=== PATIENT | female | born 1975 | race Caucasian/White ===

== ENCOUNTER 2020-07-05 20:10 | Emergency (ER) | payer OTHER, SELFPAY ==
--- NOTE | ~2020-07-05 | CT_ITS ---
EXAMINATION: CT brain wo con EXAM DATE: 07/05/2020 20:45 INDICATION: Fall, head injury. Hit right side of face and head. TECHNIQUE: Spiral CT of the head was performed without contrast. Axial, coronal and sagittal images were reviewed. The dose-length product (DLP) for this examination was 605.33 mGy-cm. The exposure w as tailored according to patient size, and iterative reconstruction (ASIR) was used as additional dos e reduction technique. There is no prior study for comparison. FINDINGS: There is no acute intraparenchymal hemorrhage. No evidence of intraparenchymal brain mass lesion. No evidence of acute infarction. There is no mass effect or midline shift. The ventricles are normal in size. There are no extra-axial collections. There are no acute calvarial fractures. T he orbits are unremarkable. Soft tissue is unremarkable. The visualized sinuses and mastoid air jose martin ls are well aerated. IMPRESSION: No acute intracranial findings. Reviewed, dictated and finalized at location A. [employer]
--- NOTE | ~2020-07-05 | CT_ITS ---
EXAMINATION: CT facial & cervical spine wo EXAM DATE: 07/05/2020 20:45 INDICATION: Fall, right-sided head injury. TECHNIQUE: Spiral CT of the facial bones was acquired in the axial plane. Coronal reformatted images were also reviewed. Spiral CT of the cervical spine was performed without contrast. Axial images we re reviewed. Coronal and sagittal reformatted images were also reviewed. The dose-length product (DL P) for this examination was 260.26 mGy-cm. The exposure was tailored according to patient size, and iterative reconstruction (ASIR) was used as additional dose reduction technique. There is no prior s tudy for comparison. FINDINGS: FACIAL CT: There are no displaced acute nasal bone fractures. The mandible, sinuses and orbits are i ntact. The orbits, globes and extraocular muscles are unremarkable. Minimal mucoperiosteal thicke hemalatha. Mastoid air cells are well aerated. Moderate to severe leftward nasal septal deviation. CERVICAL CT: There is no evidence of acute cervical fracture. The odontoid process is intact. Pre-d ens space is normal. Prevertebral soft tissue is normal. There are no soft tissue abnormalities maria e ntified. There is no disc space widening or traumatic vertebral body subluxation suspected. There i s mild cervical arthropathy and disc disease. Small C1 left lateral mass sclerotic focus likely bone island. A detailed level by level evaluation of spondylosis can be added as addendum if requested. IMPRESSION: No acute facial or cervical fracture. Reviewed, dictated and finalized at location A. [employer]
[2020-07-05 20:12] VITALS: BP 151/105; PULSE 114; RESP 18; TEMP 37; O2SAT 100
--- NOTE | 2020-07-05 20:23 | ED.FALL ---
HPI - Fall General Chief Complaint: Fall Stated Complaint: fall, mouth injury Time Seen by Provider: 07/05/20 20:19 Source: patient and family Mode of arrival: ambulatory Limitations: no limitations History of Present Illness HPI Narrative: Patient came out of her truck, possible rolled her ankle and fell struck the right face on the ground. No loss of consciousness complaining of severe dental pain and right face pain. Patient was tested positive for Covid June 12 complaint: fall Related Data Allergies Allergy/AdvReac Type Severity Reaction Status Date / Time No Known Allergies Allergy Verified 07/05/20 20:12 Review of Systems Review of Systems: Narrative: CONSTITUTIONAL: Denies fever, chills, or sweats. EYES: Denies visual changes, redness, or discharge. ENT: Denies rhinorrhea, congestion, sore throat, or otalgia. CARDIOVASCULAR: Denies chest pain, palpitations, or edema. RESPIRATORY: Denies cough or dyspnea. GASTROINTESTINAL: Denies abdominal pain, nausea, vomiting, or diarrhea. GENITOURINARY: Denies dysuria or hematuria. SKIN: Denies rash or itching. MUSCULOSKELETAL: Denies back pain, joint pain, or myalgia. NEUROLOGIC: Denies headache, numbness, or weakness. PSYCHIATRIC: Denies anxiety or depression. PMFSH Past Medical History Medical History Essential (primary) hypertension History of kidney stones left ESWL- 01/2018 Renal calculus 2001, 11/06/2014 SVT (supraventricular tachycardia) Surgical History Surgical History Hx of prior ablation treatment catheter ablation Family History Family History Other Diabetes mellitus Family history of coronary artery disease Hypertension Social History Social History Smoking status: Former smoker Tobacco type: cigarettes Second hand tobacco smoke exposure: No Smoking end date: 06/12/05 Alcohol intake: current Substance use: never Substance use type: does not use Gender identity (if verbalized by the patient): Female Exam Narrative: Exam Narrative: General appearance: Well-developed, well-nourished Skin: Normal color Head: Normocephalic, nontraumatic Eyes: Clear conjunctiva ENT: Oropharynx normal, ears normal, nose normal, upper lip showed 2 mm puncture wounds, broken right upper incisor, no active bleeding Neck: Supple, nontender Chest and respiratory: Airway patent, no respiratory distress, no accessory muscle use Heart: Regular rate/rhythm Musculoskeletal: Normal range of motion, nontender back Neurologic: Alert and oriented ?3, PATTERN KEEPER is normal as tested, no gross motor deficit Course Course Emergency Course: Stable Vital Signs Vital signs: Vital Signs Temperature 37.0 C 07/05/20 20:12 Pulse Rate 114 H 07/05/20 20:12 Respiratory Rate 18 07/05/20 20:12 Blood Pressure 151/105 H 07/05/20 20:12 Pulse Oximetry 100 07/05/20 20:12 Temperature 36.6 C 07/05/20 21:29 Pulse Rate 89 07/05/20 21:29 Respiratory Rate 18 07/05/20 21:29 Blood Pressure 136/89 07/05/20 21:29 Pulse Oximetry 97 07/05/20 21:29 MDM - Fall Imaging Data Radiologist's impression: Impressions Head CT 07/05/20 20:46 IMPRESSION: No acute intracranial findings. Head/Cervical Spine/Facial Bones CT 07/05/20 20:48 IMPRESSION: No acute facial or cervical fracture. Critical Care Time Critical Care Time Critical Care Time: No Discharge Plan Discharge Clinical Impression: Broken tooth Qualifiers: E
[2020-07-05] MEDS: HYDROcodone/acetaminophen (*CRX) 7.5-325 MG TABLET 1 TAB PO (20:34)
[2020-07-05 21:29] VITALS: BP 136/89; PULSE 89; RESP 18; TEMP 36.6; O2SAT 97
--- NOTE | 2020-07-05 21:29 | PC.NURSE ---
pt refused motrin, stated will take it when she gets home.
== END 2020-07-05 21:30 | disposition home or self-care (01) ==
PROVIDERS: Emergency Provider Emergency Medicine; PCP Family Medicine
DX: S02.5XXB Fracture of tooth (traumatic), initial encounter for open fracture (principal); S00.83XA Contusion of other part of head, initial encounter; S01.531A Puncture wound without foreign body of lip, initial encounter; I10 Essential (primary) hypertension; Z87.442 Personal history of urinary calculi; Z87.891 Personal history of nicotine dependence; W17.89XA Other fall from one level to another, initial encounter
CPT/HCPCS: 70450; 70486; 72125; 99284; A9270

== ENCOUNTER 2022-04-16 19:46 | Emergency (ER) | payer OTHER, SELFPAY ==
[2022-04-16 19:51] VITALS: BP 146/111; PULSE 101; RESP 18; TEMP 36.9; O2SAT 100
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
[2022-04-16] MEDS: ACETAMINOPHEN 500 MG TABLET 1000 MG PO (21:04)
== END 2022-04-16 21:40 | disposition home or self-care (01) ==
PROVIDERS: Emergency Provider Emergency Medicine; PCP Family Medicine
DX: S01.01XA Laceration without foreign body of scalp, initial encounter (principal); I10 Essential (primary) hypertension; Z87.442 Personal history of urinary calculi; Z87.891 Personal history of nicotine dependence; W20.8XXA Other cause of strike by thrown, projected or falling object, initial encounter
CPT/HCPCS: 12001; 99283; A9270

== ENCOUNTER 2024-01-16 15:42 | Inpatient (IN) | payer SELFPAY ==
--- NOTE | ~2024-01-16 | US_ITS ---
EXAMINATION: US right upper quadrant DATE: 01/20/2024 09:15 INDICATION: Pancreatitis. TECHNIQUE: Multiple grayscale and Doppler ultrasound images of the abdomen were obtained. COMPARISON: CT abdomen and pelvis 01/16/2024 FINDINGS: The visualized portions of the head of the pancreas are normal. Note that ultrasound is les s sensitive than CT for pancreatitis. There is diffuse hepatic steatosis. The gallbladder is normal i n size. No gallstones or gallbladder wall thickening. There is no sonographic Moran's sign. The comm on duct is normal and measures 4 mm. There is a small volume of ascites. IMPRESSION: 1. Diffuse hepatic steatosis. 2. Small volume of ascites. Reviewed, dictated and finalized at location A.
--- NOTE | ~2024-01-16 | CT_ITS ---
EXAMINATION: CT abdomen pelvis wo con DATE: 01/16/2024 21:54 INDICATION: diffuse abdominal pain, N/V TECHNIQUE: Computed tomography (CT) of the abdomen and pelvis was performed without intravenous contr ast. Automated exposure control and iterative reconstruction technique were employed. The dose-length product was 419.12 mGy-cm. COMPARISON: 09/02/2014. FINDINGS: Lower thorax: Unremarkable Liver: Diffuse fatty infiltration. Biliary/Gallbladder: Gallbladder is normal. No bile duct dilation. Pancreas: Moderate peripancreatic fat stranding with mild peripancreatic fluid. Spleen: Normal. Adrenals:No mass. Kidneys: No suspicious mass. Mild bilateral perinephric stranding, greater on the right. Multiple non obstructing bilateral calculi measuring up to 4 mm. No significant hydronephrosis. GI tract: No small or large bowel dilation. Normal appendix. Diverticulosis without diverticulitis. Mesentery/Peritoneum: No ascites, mass, or free air. Retroperitoneum: No mass. Pelvis: Pelvic organs are within normal limits. Soft Tissues: Soft tissues and body wall unremarkable. Bones: No acute osseous finding. IMPRESSION: Hepatic steatosis. Acute interstitial pancreatitis. Reviewed, dictated and finalized at location K.
[2024-01-16 15:45] VITALS: BP 101/68; PULSE 118; RESP 20; TEMP 36.2; O2SAT 100
--- NOTE | 2024-01-16 19:48 | ECG_ITS ---
Test Date: 2024-01-16 20:08:30 Measurements Intervals [place] Rate: 98 P: 54 [place]: 100 QRS: 69 QRSD: 89 T: 55 QT: 364 QTc: 466 Interpretive Statements SINUS RHYTHM WITH SHORT [place] INTERVAL NONSPECIFIC T-WAVE ABNORMALITY No previous ECG available for comparison Electronically Signed On 01-17-2024 17:08:28 CDT by Slim Lemon M.D.
--- NOTE | 2024-01-16 19:48 | ED.NAVMDI ---
HPI - Nausea/Vomiting/Diarrhea General Chief complaint: Nausea/Vomiting/Diarrhea Stated complaint: n/v/d x 2 days Time Seen by Provider: 01/16/24 19:19 Source: patient Mode of arrival: ambulatory Limitations: no limitations History of Present Illness HPI Narrative: This is a 48-year-old female who presents to the ED for chief complaint of N/ V/ D starting 2 days ago. Patient reports starting to feel sick on Monday night after only having a piece of bread to eat. She has had greater than 5 episodes of vomiting per day as well as greater than 5 episodes of diarrhea per day. Endorses some red tinged vomit but no gross hematemesis. Denies melena or rectal bleeding. Endorses diffuse abdominal pain and cramping as well. Denies fevers, chills, chest pain, cough, back pain. States that she drinks alcohol 5 days a week and drinks nearly 4-5 drinks. Related Data Home Medications Medication Instructions Recorded Confirmed naproxen sodium 220 mg capsule 220 mg PO BID PRN 07/07/20 09/25/23 (Aleve) Allergies Allergy/AdvReac Type Severity Reaction Status Date / Time vancomycin Allergy Rash Verified 09/25/23 08:29 Review of Systems Review of Systems: All systems as dictated in HPI [facility] Past Medical History Medical History (Updated 01/17/24 @ 00:30 by Regina Lainez DO) Essential (primary) hypertension Hay fever History of kidney stones left ESWL- 01/2018 Renal calculus 2001, 11/06/2014 SVT (supraventricular tachycardia) Surgical History Surgical History H/O dilation and curettage (~04/2016) History of endometrial ablation (~05/2016) Hx of prior ablation treatment (~2006) catheter ablation Family History Family History Other Diabetes mellitus Family history of coronary artery disease Hypertension Social History Social History Smoking status: Former smoker Tobacco type: cigarettes Second hand tobacco smoke exposure: No Smoking end date: 12/11/07 Alcohol intake: current Alcohol use details: consumes 2 vodka drinks occasionally Substance use: never Substance use type: does not use Gender identity (if verbalized by the patient): Female Exam Narrative: GENERAL: Appears dry. appears fatigued. No acute distress HEAD: Normocephalic, atraumatic. EYES: PERRLA and EOMI. ENT: Nares clear, no rhinorrhea or epistaxis. Mucous membranes moist. Oropharynx without tonsillar hypertrophy exudate or other lesions. NECK: Supple. No adenopathy or masses. CHEST: No respiratory distress. Clear to auscultation. No wheezes rales or rhonchi HEART: Regular rate and rhythm. No murmur heard. Normal peripheral pulses. ABDOMEN: epigastric tenderness present. Soft, otherwise nontender, nondistended, normal active bowel sounds. MSK: Normal range of motion. No edema. SKIN: Warm, dry, no rash. NEURO: Alert and oriented x4. No focal deficits. PSYCH: Normal mood and affect. Course Vital Signs Vital signs: Vital Signs Temperature 97.2 F L 01/16/24 15:45 Pulse Rate 118 H 01/16/24 15:45 Respiratory Rate 20 01/16/24 15:45 Blood Pressure 101/68 01/16/24 15:45 Pulse Oximetry 100 01/16/24 15:45 Oxygen Delivery Room Air 01/16/24 15:45 Temperature 97.2 F L 01/16/24 15:45 Pulse Rate 100 01/16/24 22:43 Respiratory Rate 14 01/16/24 22:43 Blood Pressure 114/70 01/16/24 22:43 Pulse Oximetry 100 01/16/24 22:43 Oxygen Delivery Room Air 01/16/24 15:45 MDM - Nausea/Vomiting/Diarrhea MDM Narrative Medical decision making narrative: This is a 48-year-old female who presents to the ED for chief complaint of N/ V/D and abdominal pain for 2 days. Vitals show initial tachycardia but no fever. vitals are otherwise normal. Exam remarkable for epigastric tenderness. Lab work r
[2024-01-16] MEDS: SODIUM CHLORIDE 0.9% IV 2,000 ML 999 ML IV CONT (20:16)
[2024-01-16] MEDS: MORPHINE SULFATE (*CRX) 4 MG/ML INJ IV PUSH (20:16)
[2024-01-16] MEDS: ONDANSETRON INJ 4 MG/2 ML VIAL IV PUSH (20:17)
[2024-01-16 20:19] LABS: Basophils Percent Auto 0.6 % (0.2-1.2); Eosinophils Percent Auto 0.4 % (0-4.4); Hemoglobin 10.7 g/dL (12.0-15.0); Immature Granulocyte Absolute 0.03 K/mm3 (0.00-0.031); Immature Granulocyte Percent A 0.6 % (0-0.5); Lymphocytes Absolute Auto 0.84 K/mm3 (0.9-3.2); Lymphocytes Percent Auto 16.2 % (18.3-44.2); Mean Corpuscular HGB Conc 34.5 g/dl (32-36); Mean Corpuscular Hemoglobin 39.3 pg (26-34); Mean Platelet Volume 10.2 fl (7.4-10.4); Monocytes Absolute Auto 0.6 K/mm3 (0.1-0.6); Monocytes Percent Auto 10.8 % (2.6-8.5); Neutrophils Absolute Auto 3.7 K/mm3 (1.3-6.7); Neutrophils Percent Auto 71.4 % (45.5-73.1); Platelet Count Result 105 k/mm3 (150-375); Red Blood Count 2.72 M/mm3 (4.2-5.4); Red Cell Distribution Width 14.7 % (11.5-14.5); White Blood Count 5.2 K/mm3 (4.5-10.0)
[2024-01-16 20:29] LABS: Lactic Acid Reflex 1.1 mmol/L (0.7-2.0)
[2024-01-16 20:35] LABS: Anisocytosis 1+; Macrocytosis 1+ (NORMAL); Platelet Estimate Decreased (Adequate); Schistocytes None Seen
[2024-01-16 20:50] VITALS: BP 112/69; PULSE 97; RESP 14; O2SAT 100
[2024-01-16 20:56] LABS: BEDSIDEPREGUCG Negative
[2024-01-16 21:09] LABS: Add Urine Microscopic? YES; Appearance Urine Turbid (Clear); Bacteria Urine 2+ /hpf; Bilirubin Urine Negative (Negative); Blood Urine Negative (Negative); Color Urine Yellow (Yellow); Glucose Urine UA Negative (Negative); Ketones Urine 4+ mg/dL (Negative); Leukocyte Esterase Ur 1+ LEU/UL (Negative); Mucus Urine Present /lpf; Need Manual Microscopic Reviewed; Nitrate Urine Negative (Negative); Protein Urine 1+ mg/dL (Negative); RBC Urine 0-2 /hpf (0-2); Specific Grav Ur 1.014 (1.001-1.035); Squamous Epithelial Cell Urine Many /hpf (Few); WBC Clumps Urine Present /HPF; WBC Urine 21-50 /hpf (0-3); pH Urine 5.5 (5.0-9.0)
[2024-01-16 21:20] LABS: Alanine Aminotransferase 33 U/L (6-35); Alkaline Phosphatase 67 U/L (38-126); Anion Gap 37 mmol/L (4-12); Aspartate Amino Transferase 51 U/L (14-36); Bilirubin,Total 0.8 mg/dL (0.2-1.3); Blood Urea Nitrogen 29 mg/dL (7-17); Calcium 9.3 mg/dL (8.4-10.2); Carbon Dioxide 12 mmol/L (22-30); Chloride 86 mmol/L (98-107); Estimated CRCL calculation 20 ml/min; Estimated Glomerular Filt Rate 17; Glucose 126 mg/dL (65-110); Potassium 3.4 mmol/L (3.4-5.0); Sodium 135 mmol/L (137-145)
[2024-01-16] MEDS: SODIUM CHLORIDE 0.9% IV 1,000 ML 999 ML IV CONT (21:32)
[2024-01-16 22:15] LABS: Fractional Inspired Oxygen 21 %; HCO3 VBG 13.7 mEq/l (24.0-30.0); pH VBG 7.334 (7.300-7.400)
[2024-01-16 22:15] LABS: Lipase 18944 U/L (23-300)
[2024-01-16 22:17] LABS: Device ROOM AIR; PCO2 VBG 26.4 mmHg (42.0-48.0)
[2024-01-16] MEDS: HYDROmorphone HCL INJ (*CRX) 1 MG/ML SYR 0.5 MG IV PUSH (22:34)
[2024-01-16 22:43] VITALS: BP 114/70; PULSE 100; RESP 14; O2SAT 100
--- NOTE | 2024-01-17 00:25 | PM.IMHP ---
H&P: HPI History of Present Illness Date/Time: 01/17/24 00:25 Chief Complaint: Abdominal pain Narrative: Patient is a 48-year-old female with past medical history of essential hypertension, SVT status post ablation, history of renal stones, alcohol abuse who presents to ED with complaints of abdominal pain. Patient started developing nausea vomiting diarrhea couple days ago. Her symptoms have not been improving. She denies any sick contacts or recent travels. She is accompanied by her fiance. Of note patient drinks alcohol 5 days a week each time 4-5 drinks. She has never had pancreatitis before. She still has gallbladder. No family history of any gallbladder pathology. In the ED: Patient is found to have lipase of 18,000, abdominal CT scan concerning for pancreatitis. Patient is given a couple L of normal saline, Zofran, morphine, Dilaudid, dose of Rocephin. [facility] Past Medical History Medical History Essential (primary) hypertension Hay fever History of kidney stones left ESWL- 01/2018 Renal calculus 2001, 11/06/2014 SVT (supraventricular tachycardia) Surgical History Surgical History H/O dilation and curettage (~04/2016) History of endometrial ablation (~05/2016) Hx of prior ablation treatment (~2006) catheter ablation Family History Family History Other Diabetes mellitus Family history of coronary artery disease Hypertension Social History Social History Smoking status: Former smoker Tobacco type: cigarettes Second hand tobacco smoke exposure: No Smoking end date: 12/11/07 Alcohol intake: current Alcohol use details: consumes 2 vodka drinks occasionally Substance use: never Substance use type: does not use Gender identity (if verbalized by the patient): Female Meds Home Medications and Allergies Home Medications Medication Instructions Recorded Confirmed Type naproxen sodium 220 mg capsule 220 mg PO BID PRN 07/07/20 09/25/23 History (Aleve) acetaminophen 500 mg tablet 1,000 mg PO TID PRN caroline 7 days #42 04/16/22 09/25/23 Rx tabs ibuprofen 800 mg tablet 800 mg PO TID PRN pain 7 days #21 04/16/22 09/25/23 Rx tabs hydrochlorothiazide 25 mg tablet 25 mg PO DAILY #90 tabs 09/25/23 09/25/23 Rx losartan 100 mg tablet 100 mg PO DAILY #90 tabs 09/25/23 09/25/23 Rx loratadine-pseudoephedrine ER 10 1 tablet PO DAILY #90 tabs 10/02/23 Rx mg-240 mg tablet,extended [id number] (Claritin-D 24 Hour) trazodone 50 mg tablet 50 mg PO QHS #30 tabs 10/02/23 Rx ondansetron 8 mg disintegrating 8 mg PO Q8H PRN nausea and 01/15/24 Rx tablet vomiting #15 tabs Allergies Allergy/AdvReac Type Severity Reaction Status Date / Time vancomycin Allergy Rash Verified 09/25/23 08:29 Vital Signs Vital Signs - 24 hr 01/16/24 15:45 01/16/24 20:50 01/16/24 22:43 Temperature 36.2 C L Pulse Rate 118 H 97 100 Respiratory Rate 20 14 14 Blood Pressure 101/68 112/69 114/70 Pulse Oximetry 100 100 100 Oxygen Delivery Room Air Exam Narrative: - GENERAL: Pleasant woman no acute distress - EYES: EOMI. Anicteric. - HENT: Moist mucous membranes. - LUNGS: Clear to auscultation bilaterally, no wheezing, rhonchi, or rales. - CARDIOVASCULAR: Regular rate and rhythm. No murmur. No JVD. - ABDOMEN: Soft, slightly tender epigastric region on deep palpation, nondistended, negative Moran sign. - EXTREMITIES: No edema. Peripheral pulses 2+. Non-tender. - NEUROLOGIC: No focal neurological deficits. CN II-XII grossly intact. - PSYCHIATRIC: Awake, Alert and oriented x 3. Appropriate mood and affect. - SKIN: No rashes or lesions. Warm. - LYMPH: No cervical lymphadenopathy. H&P: Results Labs Labs: Short CBC 01/16/24 Range/Units 20:06
[2024-01-17 00:30] VITALS: BP 103/76; PULSE 96; RESP 14; O2SAT 99
[2024-01-17 00:48] VITALS: BP 108/65; PULSE 103; RESP 16; TEMP 36.3; O2SAT 100; BMI 26.3
[2024-01-17] MEDS: ONDANSETRON INJ 4 MG/2 ML VIAL IV PUSH ×6 (00:49→22:05)
[2024-01-17] MEDS: LACTATED RINGERS 1,000 ML 150 ML IV CONT ×4 (00:49→21:24)
[2024-01-17] MEDS: HYDROmorphone HCL INJ (*CRX) 1 MG/ML SYR 0.5 MG IV PUSH ×6 (01:09→22:05)
--- NOTE | 2024-01-17 03:42 | ADMGEN ---
This patient, Yaneli Fang, was admitted to [address] [place] [address] Room 307-02 at 00:40. Patient/family oriented to hospital policies and general routines including ID bracelet, bed and alarms, visiting hours, pain management, procedures, bathroom and other care routines, personal items, smoking policy, room service/diet, and visiting hours. Information on how to activate the Rapid Response Team has been discussed. Patient/Family are encouraged to report perceived risks to care and to ask questions if they do not understand what they are told or what they should do.
[2024-01-17 05:46] VITALS: BP 102/65; PULSE 90; RESP 18; TEMP 36.1; O2SAT 98
--- NOTE | 2024-01-17 07:42 | PM.IMPN ---
Progress Note: A&P Assessment and Plan (1) Acute alcoholic pancreatitis: Qualifiers: Acute pancreatitis complication: no infection or necrosis Qualified Code(s): K85.20 - Alcohol induced acute pancreatitis without necrosis or infection Code(s): K85.20 - Alcohol induced acute pancreatitis without necrosis or infection Status: Acute Assessment and Plan: Patient presented with abdominal pain, nausea vomiting diarrhea. With patient's history of alcohol abuse likely alcohol pancreatitis however could be idiopathic pancreatitis - Abdomen/pelvis: Hepatic steatosis. Acute interstitial pancreatitis. - Lipase significant elevated 18,000., downtrending to 5377 on am labs -patient given IV fluids, continue LR at 150 cc/hour -pain control: P.r.n. Dilaudid -antiemetic Zofran -patient will keep NPO except ice chips for bowel rest -LFTs are normal, patient still has gallbladder, negative Moran sign. Unlikely gallbladder pancreatitis (2) Fatty liver due to alcoholism: Code(s): K70.0 - Alcoholic fatty liver Status: Acute Assessment and Plan: - Abdomen/pelvis CT scan shows some hepatic steatosis, with alcohol abuse history likely alcohol associated liver disease -discussed importance of alcohol cessation (3) Essential (primary) hypertension: Code(s): I10 - Essential (primary) hypertension Status: Acute Assessment and Plan: Chronic, well controlled on home medications. - HCTZ 25 mg daily - Losartan 100 mg daily - Monitor (4) Alcohol abuse: Code(s): F10.10 - Alcohol abuse, uncomplicated Status: Acute Assessment and Plan: Drinks 3-5 cranberry vodkas per day for the past 3 or so years. She has never experienced withdraw before. - [facility] protocol - Care coordination consulted, resources given - Vit B12, folate, thiamine, and multivitamin Plan # chronic conditions -insomnia: Trazodone -history of SVT status post ablation, no longer an issue, not on any medications for SVT -history of kidney stones Diet: NPO expect for ice chips DVT prophylaxis: Lovenox Code status: Full code Disposition: Home in 2-3 days Date of service 01/17/2024 Subjective Date/time seen: 01/17/24 07:42 Interval history: 48-year-old female with past medical history of essential hypertension, SVT status post ablation, history of renal stones, alcohol abuse who presents to ED with complaints of abdominal pain. Patient is pleasant lying in bed. She continues to endorse epigastric pain. Her lipase is downtrending now at 5337. She remains on IV fluids at this time. She denies having any appetite. Continue to discuss alcohol cessation with the patient. She is very interested and has resources given to her by care coordination. Review of Systems Review of Systems: All systems reviewed & are unremarkable except as noted in HPI and below Exam Narrative: AF HR 96 RR 16 SpO2 99 BP 110/66 General: female in no acute respiratory distress who is nontoxic appearing, lying semi recumbent in bed. HEENT: Normocephalic. Atraumatic. No facial asymmetry. Chest: Lungs are clear to auscultation bilaterally. No wheezes or crackles. CV: Heart was regular rate and rhythm. S1-S2. No murmurs, gallops, or rubs. Abd: Abdomen was soft. Epigastric tenderness. Nondistended. Positive bowel sounds. No organomegaly or masses. Neuro: Patient is alert and oriented x4. Cranial nerves 2-12 are intact. Speech is clear. Psych: Normal mood and affect. Patient is pleasant and cooperative. Skin: Warm and dry. No rashes noted. Objective Data Vital Signs Vital Signs: Vital Signs - 24 hr 01/16/24 15:45 01/16/24 20:50 01/16/24 22:43 Temperature 97.2 F L Pulse Rate 118 H 97 100 Respiratory Rate 20 14 14 Blood Pressure 101/68 112/69 114/70 Pulse Oximetry 100 100 100 Oxygen Delivery Room Air 01/17/24 00:30 01/17/24 00:48 01/17/24 01:00 Temperature 97.4 F L Pulse Rate 96 103 H
[2024-01-17] MEDS: ENOXAPARIN 30 MG/0.3 ML SYRINGE SUB-Q (08:52)
[2024-01-17] MEDS: hydroCHLOROthiazide 25 MG TABLET PO (08:52)
[2024-01-17] MEDS: LOSARTAN POTASSIUM 100 MG TABLET PO (08:52)
[2024-01-17 09:14] LABS: Basophils Percent Auto 0.5 % (0.2-1.2); Eosinophils Absolute Auto 0.1 K/mm3 (0-0.3); Eosinophils Percent Auto 1.9 % (0-4.4); Hematocrit 26.3 % (37.0-47.0); Immature Granulocyte Absolute 0.03 K/mm3 (0.00-0.031); Immature Granulocyte Percent A 0.8 % (0-0.5); Immature Platelet Fraction Pct 4.9 % (0.9-11.2); Lymphocytes Absolute Auto 0.58 K/mm3 (0.9-3.2); Lymphocytes Percent Auto 15.7 % (18.3-44.2); Mean Corpuscular HGB Conc 34.2 g/dl (32-36); Mean Corpuscular Hemoglobin 39.1 pg (26-34); Mean Corpuscular Volume 114.3 fl (80-100); Mean Platelet Volume 10.6 fl (7.4-10.4); Monocytes Absolute Auto 0.4 K/mm3 (0.1-0.6); Neutrophils Absolute Auto 2.6 K/mm3 (1.3-6.7); Neutrophils Percent Auto 71.1 % (45.5-73.1); Nucleated Red Blood Cells Perc 0.5 % (0.0-0.2); Platelet Count Result 86 k/mm3 (150-375); Red Cell Distribution Width 14.7 % (11.5-14.5); White Blood Count 3.7 K/mm3 (4.5-10.0)
[2024-01-17 10:06] LABS: Anisocytosis 1+; Platelet Estimate Decreased (Adequate); Schistocytes None Seen; Stomatocytes 1+
[2024-01-17 10:33] LABS: Iron 41 ug/dL (37-170)
[2024-01-17 10:45] LABS: Percent Iron Saturation 24 % (20-50)
[2024-01-17 11:05] VITALS: O2SAT 94
[2024-01-17 11:51] LABS: Folic Acid 5.6 ng/mL (2.76->20)
[2024-01-17 11:58] LABS: Alanine Aminotransferase 26 U/L (6-35); Albumin Level 3.5 g/dL (3.5-5.1); Alkaline Phosphatase 47 U/L (38-126); Anion Gap 17 mmol/L (4-12); Aspartate Amino Transferase 41 U/L (14-36); Bilirubin,Total 0.6 mg/dL (0.2-1.3); Blood Urea Nitrogen 21 mg/dL (7-17); Calcium 7.6 mg/dL (8.4-10.2); Carbon Dioxide 22 mmol/L (22-30); Chloride 98 mmol/L (98-107); Estimated CRCL calculation 30 ml/min; Estimated Glomerular Filt Rate 28; Glucose 82 mg/dL (65-110); Potassium 3.2 mmol/L (3.4-5.0); Sodium 137 mmol/L (137-145)
[2024-01-17 12:16] LABS: Lipase 5337 U/L (23-300)
--- NOTE | 2024-01-17 12:40 | WPDGICN ---
Assessment and Plan Assessment and plan (1) Acute alcoholic pancreatitis: Qualifiers: Acute pancreatitis complication: no infection or necrosis Qualified Code(s): K85.20 - Alcohol induced acute pancreatitis without necrosis or infection Code(s): K85.20 - Alcohol induced acute pancreatitis without necrosis or infection Status: Acute (2) Fatty liver due to alcoholism: Code(s): K70.0 - Alcoholic fatty liver Status: Acute (3) Pancytopenia: Code(s): D61.818 - Other pancytopenia Status: Acute (4) TANIA (acute kidney injury): Code(s): N17.9 - Acute kidney failure, unspecified Status: Acute Plan PLAN: 1. Acute pancreatitis: Last CT abdomen pelvis (01/16/2024) showed acute interstitial pancreatitis. Current episode likely due to chronic alcohol use. CT scan negative for any gallstones. [place] [id number] -Continue current management with pain control and clear liquids as tolerated. 2. Alcohol use: Educated patient on the importance of reducing or quitting alcohol consumption for overall health, particularly liver and pancreas health. 3. Fatty liver: CT showed hepatic steatosis, likely related to chronic alcohol use. No cirrhosis noted. no prior hx of elevated LFTs. AST 51 trending down to 41. continue monitoring. 4. Pancytopenia: Recent labs showed WBC 3.7, HGB 9, HCT 26, MCV 114, Plts 86. likely related to current acute condition and chronic alcohol use. No evidence of acute GI bleed This report may have been done utilizing a voice recognition system. Attempts have been made to correct errors. However, there may be uncorrected grammatical, spelling, and recognition errors present. GI Consult Note Consult date/time: 01/17/24 12:40 Reason for consult: pancreatitis HPI: Yaneli Fang is a pleasant 48 year old female with a past medical surgical history of hypertension, SVT status post ablation, history of renal stones, D&C, uterine ablation, and alcohol abuse. She presented to [place] on 01/16/2024 for abdominal pain with nausea and vomiting that started a couple of days prior to admission. CT scan of abdomen and pelvis showed acute interstitial pancreatitis and hepatic steatosis. Labs on admission: WBC 5.2, HGB 10.7, HCT 31, MCV 114, platelets 105, Na 135, BUN 29, creatinine 2.90, AST 51, ALT 33, alkaline phosphatase 67, lipase of 18, 944, albumin 5. She reports that on Monday afternoon, she started experiencing pain in the epigastric area. The pain was associated with nausea and vomiting, which prevented her from eating. She also experienced diarrhea which has since resolved. Currently, she reports that the abdominal pain recurs every 4 hours, accompanied by nausea. She is receiving pain medication for symptom control. She denies any hematemesis, melena, or hematochezia. She denies any previous episodes of pancreatitis or intermittent abdominal pain/discomfort prior to this admission. She has no history of gallstones or family hx of pancreatitis. She has been taking Prilosec for the past couple of years for heartburn/reflux symptoms, which were well-controlled until this episode. She had an endoscopy about 20 years ago for suspected gastric ulcer but doesn't recall the exact details. She denies any chronic Nsaid use. She has never had a colonoscopy. Regarding alcohol use, she reports drinking 3-5 drinks per night, 5 times a week, for the past 3-4 years. She denies any history of anemia, elevated liver enzymes, or jaundice. She sees her family physician once a year for blood pressure medication. Her last bowel movement was yesterday. She denies abdominal bloating. ENDOSCOPY HISTORY: EGD: Approximately 20 years ago (exact date unknown) (doctor unknown) (indication: suspected hiatal hernia) Findings: Unknown Repeat EGD recommendation: Not available COLONOSCOPY: No history of col
[2024-01-17 14:00] VITALS: BP 110/66; PULSE 96; RESP 16; TEMP 36.4; O2SAT 99
[2024-01-17 15:44] LABS: Triglycerides 95 mg/dL (<150)
[2024-01-17 20:57] VITALS: BP 108/66; PULSE 87; RESP 18; TEMP 36.7; O2SAT 100
[2024-01-17] MEDS: traZODone HCL 50 MG TABLET PO (22:32)
[2024-01-18] MEDS: HYDROmorphone HCL INJ (*CRX) 1 MG/ML SYR 0.5 MG IV PUSH ×6 (02:16→23:18)
[2024-01-18] MEDS: ONDANSETRON INJ 4 MG/2 ML VIAL IV PUSH ×4 (02:16→15:19)
[2024-01-18] MEDS: LACTATED RINGERS 1,000 ML 150 ML IV CONT ×2 (03:56→21:12)
[2024-01-18 06:00] VITALS: BP 100/58; PULSE 85; RESP 20; TEMP 36.4; O2SAT 99
[2024-01-18 07:08] LABS: Basophils Percent Auto 0.7 % (0.2-1.2); Eosinophils Absolute Auto 0.1 K/mm3 (0-0.3); Hematocrit 27.1 % (37.0-47.0); Hemoglobin 9.2 g/dL (12.0-15.0); Immature Granulocyte Absolute 0.03 K/mm3 (0.00-0.031); Immature Platelet Fraction Pct 4.8 % (0.9-11.2); Lymphocytes Absolute Auto 0.65 K/mm3 (0.9-3.2); Lymphocytes Percent Auto 21.2 % (18.3-44.2); Mean Corpuscular HGB Conc 33.9 g/dl (32-36); Mean Corpuscular Hemoglobin 38.5 pg (26-34); Mean Corpuscular Volume 113.4 fl (80-100); Mean Platelet Volume 10.3 fl (7.4-10.4); Monocytes Absolute Auto 0.3 K/mm3 (0.1-0.6); Monocytes Percent Auto 11.1 % (2.6-8.5); Platelet Count Result 87 k/mm3 (150-375); Red Blood Count 2.39 M/mm3 (4.2-5.4); Red Cell Distribution Width 14.6 % (11.5-14.5); White Blood Count 3.1 K/mm3 (4.5-10.0)
[2024-01-18 07:16] LABS: INR 0.9; Prothrombin Time 12.8 Seconds (11.1-14.7)
[2024-01-18 07:19] LABS: Alanine Aminotransferase 27 U/L (6-35); Albumin Level 3.6 g/dL (3.5-5.1); Alkaline Phosphatase 55 U/L (38-126); Anion Gap 16 mmol/L (4-12); Aspartate Amino Transferase 64 U/L (14-36); Bilirubin,Total 0.6 mg/dL (0.2-1.3); Blood Urea Nitrogen 11 mg/dL (7-17); Calcium 8.1 mg/dL (8.4-10.2); Carbon Dioxide 25 mmol/L (22-30); Chloride 95 mmol/L (98-107); Estimated CRCL calculation 38 ml/min; Estimated Glomerular Filt Rate 37; Glucose 79 mg/dL (65-110); Potassium 2.8 mmol/L (3.4-5.0); Sodium 136 mmol/L (137-145)
[2024-01-18 07:24] LABS: Lipase 2273 U/L (23-300)
--- NOTE | 2024-01-18 08:17 | PM.IMPN ---
Progress Note: A&P Assessment and Plan (1) Acute alcoholic pancreatitis: Qualifiers: Acute pancreatitis complication: no infection or necrosis Qualified Code(s): K85.20 - Alcohol induced acute pancreatitis without necrosis or infection Code(s): K85.20 - Alcohol induced acute pancreatitis without necrosis or infection Status: Acute Assessment and Plan: Patient presented with abdominal pain, nausea vomiting diarrhea. With patient's history of alcohol abuse likely alcohol pancreatitis however could be idiopathic pancreatitis - Abdomen/pelvis: Hepatic steatosis. Acute interstitial pancreatitis. - Lipase significant elevated 18,000 on admission, downtrending to 2273 on am labs - patient given IV fluids, continue LR at 150 cc/hour - pain control: P.r.n. Dilaudid - antiemetic Zofran - diet: clear liquid, advance as tolerated - LFTs are normal, patient still has gallbladder, negative Moran sign. Unlikely gallbladder pancreatitis (2) Fatty liver due to alcoholism: Code(s): K70.0 - Alcoholic fatty liver Status: Acute Assessment and Plan: - Abdomen/pelvis CT scan shows some hepatic steatosis, with alcohol abuse history likely alcohol associated liver disease -discussed importance of alcohol cessation (3) Essential (primary) hypertension: Code(s): I10 - Essential (primary) hypertension Status: Acute Assessment and Plan: Chronic, well controlled on home medications. - HCTZ 25 mg daily - Losartan 100 mg daily - Monitor (4) Alcohol abuse: Code(s): F10.10 - Alcohol abuse, uncomplicated Status: Acute Assessment and Plan: Drinks 3-5 cranberry vodkas per day for the past 3 or so years. She has never experienced withdraw before. - [facility] protocol - Care coordination consulted, resources given - Vit B12, folate, thiamine, and multivitamin ordered (5) Pancytopenia: Code(s): D61.818 - Other pancytopenia Status: Acute Assessment and Plan: Patient has low blood levels likely due to her ongoing alcoholism. Discussed with patient that these will likely improve with alcohol cessation and to follow up with a casino attendant outpatient. - Iron panel: iron 43, TIBC 173, % saturation 24 - B12 343 - Folate 5.6 - Patient on B12 and folate supplements for alcohol abuse (6) TANIA (acute kidney injury): Code(s): N17.9 - Acute kidney failure, unspecified Status: Acute Assessment and Plan: BUN/Cr 29/2.9 on admission. Unknown baseline. - BUN/Cr 11/1.5 on am labs - Avoid nephrotoxic medications - Renally dose medications - Monitor I/O and vital signs - Monitor kidney function on am labs Plan # chronic conditions -insomnia: Trazodone -history of SVT status post ablation, no longer an issue, not on any medications for SVT -history of kidney stones Diet: clear liquid DVT prophylaxis: Lovenox Code status: Full code Disposition: Home in 2-3 days Time Spent With Patient Time with patient: 25 - 35 minutes Subjective Date/time seen: 01/18/24 08:17 Interval history: 48-year-old female with past medical history of essential hypertension, SVT status post ablation, history of renal stones, alcohol abuse who presents to ED with complaints of abdominal pain. Patient is pleasant lying in bed with friend at bedside. Per patient okay to discuss care plan with friend present. Patient states she is feeling better. Her appetite has returned. Will start patient on clear liquid diet and advance as tolerated. If patient tolerates the diet will start her on oral pain regimen. Patient denies chest pain, shortness of breath, nausea/vomiting and changes in bowel/bladder. Review of Systems Review of Systems: All systems reviewed & are unremarkable except as noted in HPI and below Exam Narrative: AF HR 85 RR 20 SpO2 99 BP 115/65 General: female in no acute respiratory distress who is nontoxic appearing, lying semi recumbent in bed.
[2024-01-18 09:00] VITALS: BP 115/65; PULSE 80; O2SAT 100
[2024-01-18] MEDS: POTASSIUM CHLORIDE 20 MEQ ER TABLET 40 MEQ PO (09:03)
[2024-01-18] MEDS: FOLIC ACID 0.4 MG TABLET PO (09:03)
[2024-01-18] MEDS: hydroCHLOROthiazide 25 MG TABLET PO (09:04)
[2024-01-18] MEDS: LOSARTAN POTASSIUM 100 MG TABLET PO (09:04)
[2024-01-18] MEDS: MULTIVITAMINS THERAPEUTIC TAB (*BKC) 1 TABLET PO (09:04)
[2024-01-18] MEDS: CYANOCOBALAMIN 500 MCG TABLET PO (09:04)
[2024-01-18] MEDS: ENOXAPARIN 30 MG/0.3 ML SYRINGE SUB-Q (09:05)
[2024-01-18] MEDS: THIAMINE HCL 200 MG/2 ML VIAL 100 MG IV PUSH (09:05)
[2024-01-18] MEDS: POTASSIUM CHLORIDE INJ 40 MEQ in SODIUM CHLORIDE 0.9% IV 500 ML 130 MEQ IVPB (09:06)
[2024-01-18 14:00] VITALS: BP 123/84; PULSE 90; RESP 18; TEMP 36.9; O2SAT 96
--- NOTE | 2024-01-18 15:43 | WPDGIPROGNO ---
Progress Note: A&P Assessment and Plan (1) Acute alcoholic pancreatitis: Qualifiers: Acute pancreatitis complication: no infection or necrosis Qualified Code(s): K85.20 - Alcohol induced acute pancreatitis without necrosis or infection Code(s): K85.20 - Alcohol induced acute pancreatitis without necrosis or infection Status: Acute Assessment and Plan: here with alcoholic pancreatitis lipase trending down but still symptomatic liquid diet when pain and nausea better continue with supportive care (2) Fatty liver due to alcoholism: Code(s): K70.0 - Alcoholic fatty liver Status: Acute (3) TANIA (acute kidney injury): Code(s): N17.9 - Acute kidney failure, unspecified Status: Acute Assessment and Plan: improving slowly (4) Pancytopenia: Code(s): D61.818 - Other pancytopenia Status: Acute Assessment and Plan: probably from alcohol abuse/BM toxicity and liver disease will need scopes as outpatient (5) Alcohol abuse: Code(s): F10.10 - Alcohol abuse, uncomplicated Status: Acute Assessment and Plan: she really needs to quit altogether thiamine, mvi (6) Nausea and vomiting in adult: Code(s): R11.2 - Nausea with vomiting, unspecified Status: Acute Assessment and Plan: antiemetics (7) Elevated transaminase level: Code(s): R74.01 - Elevation of levels of liver transaminase levels Status: Acute Subjective Date/time seen: 01/18/24 15:43 Interval history: still with abdominal discomfort, today tried liquid diet but became sick Review of Systems Review of Systems: All systems reviewed & are unremarkable except as noted in HPI and below Exam Const: General: comfortable HENMT: Face/Nose/Sinus: Normal nares present Eyes: General: appearance normal, both eyes and all related structures Neck: Neck: supple Resp: Auscultation: clear to auscultation bilaterally Cardio: Rate: regular rate Rhythm: regular rhythm GI: Inspection: non-distended GI Palp: Yes Soft to palpation and Yes Tenderness to palpation present (GI) (mild epigastric pain, no rebound) Auscultation: normal bowel sounds Skin: General skin exam: normal color Neuro: Speech: normal speech Motor exam (neuro): 5/5 motor strength present throughout Extrem: General: normal to inspection Psych: Affect: Anxious affect present Objective Data Vital Signs Vital Signs: Vital Signs - 24 hr 01/17/24 20:57 08/07/24 20:00 01/18/24 06:00 Temperature 98.1 F 97.5 F L Pulse Rate 87 85 Respiratory Rate 18 20 Blood Pressure 108/66 100/58 L Pulse Oximetry 100 99 Oxygen Delivery Room Air 01/18/24 09:00 01/18/24 09:00 01/18/24 14:00 Temperature 98.5 F Pulse Rate 80 90 Respiratory Rate 18 Blood Pressure 115/65 123/84 Pulse Oximetry 100 96 Oxygen Delivery Room Air Intake/Output Intake/Output: Intake & Output 01/15/24 01/16/24 01/17/24 01/18/24 23:59 23:59 23:59 23:59 Intake Total 2049 3955 1220 Balance 2049 3955 1220 Meds/Results Medications: Active Medications Generic Name Dose Route Start Last Admin Trade Name Freq PRN Reason Stop Dose Admin Cyanocobalamin 500 mcg 01/18/24 09:00 01/18/24 09:04 Cyanocobalamin 500 Mcg Tablet PO 500 mcg QAM CICI Administration Enoxaparin Sodium 30 mg 01/17/24 09:00 01/18/24 09:05 Enoxaparin 30 Mg/0.3 Ml Syringe SUB-Q 30 mg DAILY CICI Administration Folic Acid 0.4 mg 01/18/24 09:00 01/18/24 09:03 Folic Acid 0.4 Mg Tablet PO 0.4 mg DAILY CICI Administration Hydrochlorothiazide 25 mg 01/17/24 09:00 01/18/24 09:04 Hydrochlorothiazide 25 Mg Tablet PO 25 mg DAILY CICI Administration Hydromorphone HCl 0.5 mg 01/16/24 23:39 01/18/24 15:19 Hydromorphone Hcl Inj (*Crx) 1 Mg/Ml Syr IV PUSH 0.5 mg Q4H PRN Administration Pain Rated 7-10 Lactated Ringer's 1,000 mls @ 150 mls/hr 01/16/24 23:40 01/18/24
[2024-01-18] MEDS: traZODone HCL 50 MG TABLET PO (21:11)
[2024-01-18 22:00] VITALS: BP 126/83; PULSE 82; RESP 16; TEMP 36.1; O2SAT 99
[2024-01-19] VITALS: PULSE 82
[2024-01-19] MEDS: HYDROmorphone HCL INJ (*CRX) 1 MG/ML SYR 0.5 MG IV PUSH ×5 (03:38→20:34)
[2024-01-19 04:00] VITALS: PULSE 80
[2024-01-19] MEDS: LACTATED RINGERS 1,000 ML 150 ML IV CONT ×3 (04:16→19:56)
[2024-01-19 05:37] VITALS: BP 124/84; PULSE 78; RESP 16; TEMP 36.6; O2SAT 98
[2024-01-19 06:07] LABS: Basophils Percent Auto 0.7 % (0.2-1.2); Eosinophils Absolute Auto 0.1 K/mm3 (0-0.3); Eosinophils Percent Auto 3.7 % (0-4.4); Hematocrit 24.7 % (37.0-47.0); Hemoglobin 8.7 g/dL (12.0-15.0); Immature Granulocyte Absolute 0.04 K/mm3 (0.00-0.031); Immature Granulocyte Percent A 1.3 % (0-0.5); Immature Platelet Fraction Pct 5.3 % (0.9-11.2); Lymphocytes Absolute Auto 0.69 K/mm3 (0.9-3.2); Mean Corpuscular HGB Conc 35.2 g/dl (32-36); Mean Corpuscular Hemoglobin 39.7 pg (26-34); Mean Corpuscular Volume 112.8 fl (80-100); Mean Platelet Volume 10.2 fl (7.4-10.4); Monocytes Absolute Auto 0.4 K/mm3 (0.1-0.6); Neutrophils Absolute Auto 1.8 K/mm3 (1.3-6.7); Neutrophils Percent Auto 59.3 % (45.5-73.1); Platelet Count Result 87 k/mm3 (150-375); Red Blood Count 2.19 M/mm3 (4.2-5.4); Red Cell Distribution Width 14.6 % (11.5-14.5)
[2024-01-19 06:13] LABS: INR 0.9; Prothrombin Time 12.9 Seconds (11.1-14.7)
[2024-01-19 06:39] LABS: Platelet Estimate Slightly Decreased (Adequate)
[2024-01-19 06:40] LABS: Anisocytosis 1+; Hypochromasia 1+; Macrocytosis 1+ (NORMAL); Schistocytes None Seen
[2024-01-19 06:48] LABS: Alanine Aminotransferase 26 U/L (6-35); Albumin Level 3.1 g/dL (3.5-5.1); Alkaline Phosphatase 52 U/L (38-126); Anion Gap 11 mmol/L (4-12); Aspartate Amino Transferase 86 U/L (14-36); Bilirubin,Total 0.5 mg/dL (0.2-1.3); Blood Urea Nitrogen 6 mg/dL (7-17); Calcium 8.3 mg/dL (8.4-10.2); Carbon Dioxide 26 mmol/L (22-30); Chloride 99 mmol/L (98-107); Estimated CRCL calculation 47 ml/min; Estimated Glomerular Filt Rate 48; Glucose 78 mg/dL (65-110); Potassium 3.5 mmol/L (3.4-5.0); Sodium 136 mmol/L (137-145)
[2024-01-19 07:14] LABS: Lipase 2445 U/L (23-300)
--- NOTE | 2024-01-19 08:23 | PM.IMPN ---
Progress Note: A&P Assessment and Plan (1) Acute alcoholic pancreatitis: Qualifiers: Acute pancreatitis complication: no infection or necrosis Qualified Code(s): K85.20 - Alcohol induced acute pancreatitis without necrosis or infection Code(s): K85.20 - Alcohol induced acute pancreatitis without necrosis or infection Status: Acute Assessment and Plan: Patient presented with abdominal pain, nausea vomiting diarrhea. With patient's history of alcohol abuse likely alcohol pancreatitis however could be idiopathic pancreatitis - Abdomen/pelvis: Hepatic steatosis. Acute interstitial pancreatitis. - Lipase significant elevated 18,000 on admission, downtrending to 2273 on am labs - patient given IV fluids, continue LR at 150 cc/hour - pain control: P.r.n. Dilaudid - antiemetic Zofran - diet: clear liquid, advance as tolerated - bili, alk phs and ALT WNL. AST slightly elevated. [place] sign was positive on today exam. Will obtain a RUQ US to reevaluate. (2) Fatty liver due to alcoholism: Code(s): K70.0 - Alcoholic fatty liver Status: Acute Assessment and Plan: - Abdomen/pelvis CT scan shows some hepatic steatosis, with alcohol abuse history likely alcohol associated liver disease -discussed importance of alcohol cessation (3) Essential (primary) hypertension: Code(s): I10 - Essential (primary) hypertension Status: Acute Assessment and Plan: Chronic, well controlled on home medications. - HCTZ 25 mg daily - Losartan 100 mg daily - Monitor (4) Alcohol abuse: Code(s): F10.10 - Alcohol abuse, uncomplicated Status: Acute Assessment and Plan: Drinks 3-5 cranberry vodkas per day for the past 3 or so years. She has never experienced withdraw before. - [facility] protocol - Care coordination consulted, resources given - Vit B12, folate, thiamine, and multivitamin ordered (5) Pancytopenia: Code(s): D61.818 - Other pancytopenia Status: Acute Assessment and Plan: Patient has low blood levels likely due to her ongoing alcoholism. Discussed with patient that these will likely improve with alcohol cessation and to follow up with a nsh teacher outpatient. - Iron panel: iron 43, TIBC 173, % saturation 24 - B12 343 - Folate 5.6 - Patient on B12 and folate supplements for alcohol abuse - Per GI will require scopes as outpatient (6) TANIA (acute kidney injury): Code(s): N17.9 - Acute kidney failure, unspecified Status: Acute Assessment and Plan: BUN/Cr 29/2.9 on admission. Unknown baseline. - BUN/Cr 6/1.2 on am labs - Avoid nephrotoxic medications - Renally dose medications - Monitor I/O and vital signs - Monitor kidney function on am labs Plan # chronic conditions -insomnia: Trazodone -history of SVT status post ablation, no longer an issue, not on any medications for SVT -history of kidney stones Diet: clear liquid DVT prophylaxis: Lovenox Code status: Full code Disposition: Home in 2-3 days Time Spent With Patient Time with patient: 25 - 35 minutes Subjective Date/time seen: 01/19/24 08:23 Interval history: 48-year-old female with past medical history of essential hypertension, SVT status post ablation, history of renal stones, alcohol abuse who presents to ED with complaints of abdominal pain. Patient is pleasant lying in bed with friend at bedside. She continues to endorse epigastric pain that is now radiating to her back. Her tot bili, alk phos and ALT WNL. AST slightly elevated. She had positive murphys sign today. Will obtain a RUQ US in the am to reassess. Patient will be made NPO at midnight. She is slowly tolerating full liquid diet today. She remains on IV pain regimen at this time. She denies chest pain, shortness of breath, nausea/vomiting and changes in bowel/bladder. Review of Systems Review of Systems: All systems reviewed & are unremarkable except as noted in HPI and below Exam Jose E
[2024-01-19] MEDS: CYANOCOBALAMIN 500 MCG TABLET PO (08:31)
[2024-01-19] MEDS: THIAMINE HCL 200 MG/2 ML VIAL 100 MG IV PUSH (08:31)
[2024-01-19] MEDS: MULTIVITAMINS THERAPEUTIC TAB (*BKC) 1 TABLET PO (08:33)
[2024-01-19] MEDS: FOLIC ACID 0.4 MG TABLET PO (08:33)
[2024-01-19] MEDS: LOSARTAN POTASSIUM 100 MG TABLET PO (08:33)
[2024-01-19] MEDS: hydroCHLOROthiazide 25 MG TABLET PO (08:33)
[2024-01-19 14:00] VITALS: BP 136/91; PULSE 93; RESP 17; TEMP 36.4; O2SAT 99
--- NOTE | 2024-01-19 14:51 | WPDGIPROGNO ---
Progress Note: A&P Assessment and Plan (1) Acute alcoholic pancreatitis: Qualifiers: Acute pancreatitis complication: no infection or necrosis Qualified Code(s): K85.20 - Alcohol induced acute pancreatitis without necrosis or infection Code(s): K85.20 - Alcohol induced acute pancreatitis without necrosis or infection Status: Acute Assessment and Plan: here with alcoholic pancreatitis less symptomatic and tolerating diet, ok to advance continue with supportive care (2) Fatty liver due to alcoholism: Code(s): K70.0 - Alcoholic fatty liver Status: Acute (3) TANIA (acute kidney injury): Code(s): N17.9 - Acute kidney failure, unspecified Status: Acute Assessment and Plan: improving slowly (4) Pancytopenia: Code(s): D61.818 - Other pancytopenia Status: Acute Assessment and Plan: probably from alcohol abuse/BM toxicity and liver disease will need scopes as outpatient (5) Alcohol abuse: Code(s): F10.10 - Alcohol abuse, uncomplicated Status: Acute Assessment and Plan: she really needs to quit altogether thiamine, mvi (6) Nausea and vomiting in adult: Code(s): R11.2 - Nausea with vomiting, unspecified Status: Acute Assessment and Plan: this is almost gone (7) Elevated transaminase level: Code(s): R74.01 - Elevation of levels of liver transaminase levels Status: Acute Subjective Date/time seen: 01/19/24 14:51 Interval history: she is tolerating liquid diet today, still some abdominal pain overall better than yesterday Review of Systems Review of Systems: All systems reviewed & are unremarkable except as noted in HPI and below Exam Const: General: comfortable HENMT: Face/Nose/Sinus: Normal nares present Eyes: General: appearance normal, both eyes and all related structures Neck: Neck: supple Resp: Auscultation: clear to auscultation bilaterally Cardio: Rate: regular rate Rhythm: regular rhythm GI: Inspection: non-distended GI Palp: Yes Soft to palpation and Yes Tenderness to palpation present (GI) (mild epigastric pain, no rebound) Auscultation: normal bowel sounds Skin: General skin exam: normal color Neuro: Speech: normal speech Motor exam (neuro): 5/5 motor strength present throughout Extrem: General: normal to inspection Psych: Affect: Anxious affect present Objective Data Vital Signs Vital Signs: Vital Signs - 24 hr 01/18/24 22:00 01/19/24 05:37 01/19/24 00:00 Temperature 97.0 F L 97.8 F Pulse Rate 82 78 82 Respiratory Rate 16 16 Blood Pressure 126/83 124/84 Pulse Oximetry 99 98 Oxygen Delivery 01/19/24 04:00 01/19/24 08:30 Temperature Pulse Rate 80 Respiratory Rate Blood Pressure Pulse Oximetry Oxygen Delivery Room Air Intake/Output Intake/Output: Intake & Output 01/16/24 01/17/24 01/18/24 01/19/24 23:59 23:59 23:59 23:59 Intake Total 2049 3955 2220 2370 Balance 2049 3955 2220 2370 Meds/Results Medications: Active Medications Generic Name Dose Route Start Last Admin Trade Name Freq PRN Reason Stop Dose Admin Cyanocobalamin 500 mcg 01/18/24 09:00 01/19/24 08:31 Cyanocobalamin 500 Mcg Tablet PO 500 mcg QAM CICI Administration Enoxaparin Sodium 30 mg 01/17/24 09:00 01/19/24 08:32 Enoxaparin 30 Mg/0.3 Ml Syringe SUB-Q Not Given DAILY CICI Folic Acid 0.4 mg 01/18/24 09:00 01/19/24 08:33 Folic Acid 0.4 Mg Tablet PO 0.4 mg DAILY CICI Administration Hydrochlorothiazide 25 mg 01/17/24 09:00 01/19/24 08:33 Hydrochlorothiazide 25 Mg Tablet PO 25 mg DAILY CICI Administration Hydromorphone HCl 0.5 mg 01/16/24 23:39 01/19/24 12:31 Hydromorphone Hcl Inj (*Crx) 1 Mg/Ml Syr IV PUSH 0.5 mg Q4H PRN Administration Pain Rated 7-10 Lactated Ringer's 1,000 mls @ 150 mls/hr 01/16/24 23:40 01/19/24 12:31 Lr - Lactated Ringers Iv IV CONT 150 mls/hr .Q6H
[2024-01-19 20:17] VITALS: BP 134/96; PULSE 87; RESP 20; TEMP 36.6; O2SAT 98
[2024-01-19] MEDS: HYDROcodone/acetaminophen (*CRX) 5-325 MG TABLET 1 TAB PO (21:21)
[2024-01-19] MEDS: traZODone HCL 50 MG TABLET PO (21:51)
[2024-01-20] MEDS: HYDROcodone/acetaminophen (*CRX) 5-325 MG TABLET 1 TAB PO ×6 (00:47→22:18)
[2024-01-20 05:36] VITALS: BP 149/97; PULSE 81; RESP 14; TEMP 36.3; O2SAT 99
[2024-01-20 06:18] LABS: Basophils Percent Auto 1.4 % (0.2-1.2); Eosinophils Absolute Auto 0.1 K/mm3 (0-0.3); Eosinophils Percent Auto 3.6 % (0-4.4); Hematocrit 26.8 % (37.0-47.0); Hemoglobin 9.2 g/dL (12.0-15.0); Immature Granulocyte Absolute 0.05 K/mm3 (0.00-0.031); Immature Granulocyte Percent A 1.8 % (0-0.5); Immature Platelet Fraction Pct 5.4 % (0.9-11.2); Lymphocytes Absolute Auto 0.69 K/mm3 (0.9-3.2); Lymphocytes Percent Auto 24.8 % (18.3-44.2); Mean Corpuscular HGB Conc 34.3 g/dl (32-36); Mean Corpuscular Hemoglobin 38.8 pg (26-34); Mean Corpuscular Volume 113.1 fl (80-100); Mean Platelet Volume 10.5 fl (7.4-10.4); Monocytes Absolute Auto 0.4 K/mm3 (0.1-0.6); Monocytes Percent Auto 13.3 % (2.6-8.5); Neutrophils Absolute Auto 1.5 K/mm3 (1.3-6.7); Neutrophils Percent Auto 55.1 % (45.5-73.1); Platelet Count Result 106 k/mm3 (150-375); Red Blood Count 2.37 M/mm3 (4.2-5.4); Red Cell Distribution Width 14.5 % (11.5-14.5); White Blood Count 2.8 K/mm3 (4.5-10.0)
[2024-01-20 06:29] LABS: Prothrombin Time 13.3 Seconds (11.1-14.7)
[2024-01-20 06:34] LABS: Alanine Aminotransferase 27 U/L (6-35); Albumin Level 3.4 g/dL (3.5-5.1); Alkaline Phosphatase 56 U/L (38-126); Anion Gap 10 mmol/L (4-12); Aspartate Amino Transferase 74 U/L (14-36); Bilirubin,Total 0.5 mg/dL (0.2-1.3); Blood Urea Nitrogen 4 mg/dL (7-17); Calcium 8.9 mg/dL (8.4-10.2); Carbon Dioxide 29 mmol/L (22-30); Chloride 95 mmol/L (98-107); Estimated CRCL calculation 56 ml/min; Estimated Glomerular Filt Rate 60; Glucose 89 mg/dL (65-110); Potassium 3.5 mmol/L (3.4-5.0); Sodium 134 mmol/L (137-145)
[2024-01-20 06:41] LABS: Lipase 3074 U/L (23-300)
[2024-01-20 07:07] LABS: Macrocytosis 1+ (NORMAL); Platelet Estimate Slightly Decreased (Adequate)
[2024-01-20 07:08] LABS: Hypochromasia 1+; Schistocytes None Seen
--- NOTE | 2024-01-20 08:59 | PC.NURSE ---
Pt. down to ultrasound via wheelchair.
[2024-01-20] MEDS: MULTIVITAMINS THERAPEUTIC TAB (*BKC) 1 TABLET PO (09:17)
[2024-01-20] MEDS: THIAMINE HCL 200 MG/2 ML VIAL 100 MG IV PUSH (09:17)
[2024-01-20] MEDS: FOLIC ACID 0.4 MG TABLET PO (09:17)
[2024-01-20] MEDS: CYANOCOBALAMIN 500 MCG TABLET PO (09:17)
[2024-01-20] MEDS: hydroCHLOROthiazide 25 MG TABLET PO (09:17)
[2024-01-20] MEDS: LOSARTAN POTASSIUM 100 MG TABLET PO (09:17)
--- NOTE | 2024-01-20 09:25 | PC.NURSE ---
Pt back from ultrasound at 9:20.
[2024-01-20] MEDS: LACTATED RINGERS 1,000 ML 150 ML IV CONT (10:44)
--- NOTE | 2024-01-20 12:57 | WPDGIPROGNO ---
Progress Note: A&P Assessment and Plan (1) Acute alcoholic pancreatitis: Qualifiers: Acute pancreatitis complication: no infection or necrosis Qualified Code(s): K85.20 - Alcohol induced acute pancreatitis without necrosis or infection Code(s): K85.20 - Alcohol induced acute pancreatitis without necrosis or infection Status: Acute Assessment and Plan: here with alcoholic pancreatitis tolerating diet pain better and not longer requiring iv pain meds just oral as needed home soon (2) Fatty liver due to alcoholism: Code(s): K70.0 - Alcoholic fatty liver Status: Acute (3) TANIA (acute kidney injury): Code(s): N17.9 - Acute kidney failure, unspecified Status: Acute Assessment and Plan: normalized (4) Pancytopenia: Code(s): D61.818 - Other pancytopenia Status: Acute Assessment and Plan: probably from alcohol abuse/BM toxicity and liver disease stable (5) Alcohol abuse: Code(s): F10.10 - Alcohol abuse, uncomplicated Status: Acute Assessment and Plan: she really needs to quit altogether thiamine, mvi (6) Nausea and vomiting in adult: Code(s): R11.2 - Nausea with vomiting, unspecified Status: Acute Assessment and Plan: resolved (7) Elevated transaminase level: Code(s): R74.01 - Elevation of levels of liver transaminase levels Status: Acute Subjective Date/time seen: 01/20/24 12:57 Interval history: no nausea, pain has improved and eating regular diet now Review of Systems Review of Systems: All systems reviewed & are unremarkable except as noted in HPI and below Exam Const: General: comfortable HENMT: Face/Nose/Sinus: Normal nares present Eyes: General: appearance normal, both eyes and all related structures Neck: Neck: supple Resp: Auscultation: clear to auscultation bilaterally Cardio: Rate: regular rate Rhythm: regular rhythm GI: Inspection: non-distended GI Palp: Yes Soft to palpation and No Tenderness to palpation present (GI) Auscultation: normal bowel sounds Skin: General skin exam: normal color Neuro: Speech: normal speech Motor exam (neuro): 5/5 motor strength present throughout Extrem: General: normal to inspection Psych: Affect: normal affect Objective Data Vital Signs Vital Signs: Vital Signs - 24 hr 01/19/24 14:00 01/19/24 20:17 01/19/24 20:00 Temperature 97.5 F L 97.8 F Pulse Rate 93 87 Respiratory Rate 17 20 Blood Pressure 136/91 H 134/96 H Pulse Oximetry 99 98 Oxygen Delivery Room Air 01/20/24 05:36 01/20/24 08:00 Temperature 97.3 F L Pulse Rate 81 Respiratory Rate 14 Blood Pressure 149/97 H Pulse Oximetry 99 Oxygen Delivery Room Air Intake/Output Intake/Output: Intake & Output 01/17/24 01/18/24 01/19/24 01/20/24 23:59 23:59 23:59 23:59 Intake Total 3955 2220 3610 1650 Balance 3955 2220 3610 1650 Meds/Results Medications: Active Medications Generic Name Dose Route Start Last Admin Trade Name Freq PRN Reason Stop Dose Admin Hydrocodone Bitart/Acetaminophen 1 tab 01/19/24 20:44 01/20/24 12:54 Hydrocodone/Acetaminophen (*Crx) 5-325 Mg Tablet PO 1 tab Q4H PRN Administration Pain Rated 4-6 Cyanocobalamin 500 mcg 01/18/24 09:00 01/20/24 09:17 Cyanocobalamin 500 Mcg Tablet PO 500 mcg QAM CICI Administration Folic Acid 0.4 mg 01/18/24 09:00 01/20/24 09:17 Folic Acid 0.4 Mg Tablet PO 0.4 mg DAILY CICI Administration Hydrochlorothiazide 25 mg 01/17/24 09:00 01/20/24 09:17 Hydrochlorothiazide 25 Mg Tablet PO 25 mg DAILY CICI Administration Hydromorphone HCl 0.5 mg 01/16/24 23:39 01/19/24 20:34 Hydromorphone Hcl Inj (*Crx) 1 Mg/Ml Syr IV PUSH 0.5 mg Q4H PRN Administration Pain Rated 7-10 Lactated Ringer's 1,000 mls @ 100 mls/hr 01/16/24 23:40 01/20/24 11:34 Lr - Lactated Ringers Iv IV CONT Not Given .Q10H CICI Ceftriaxone
--- NOTE | 2024-01-20 13:38 | PM.IMPN ---
Progress Note: A&P Assessment and Plan (1) Acute alcoholic pancreatitis: Qualifiers: Acute pancreatitis complication: no infection or necrosis Qualified Code(s): K85.20 - Alcohol induced acute pancreatitis without necrosis or infection Code(s): K85.20 - Alcohol induced acute pancreatitis without necrosis or infection Status: Acute Assessment and Plan: Patient presented with abdominal pain, nausea vomiting diarrhea. With patient's history of alcohol abuse likely alcohol pancreatitis however could be idiopathic pancreatitis - Abdomen/pelvis: Hepatic steatosis. Acute interstitial pancreatitis. - Lipase significant elevated 18,000 on admission, downtrended to 2273, now 3074 - Patient given IV fluids, continue LR at 100 cc/hour - Renal US: The gallbladder is normal in size. No gallstones or gallbladder wall thickening. There is no sonographic Moran's sign. - pain control: scheduled Tylenol, norco PRN, P.r.n. Dilaudid - antiemetic Zofran - diet: clear liquid, advance as tolerated - bili, alk phs and ALT WNL. AST slightly elevated. (2) Fatty liver due to alcoholism: Code(s): K70.0 - Alcoholic fatty liver Status: Acute Assessment and Plan: - Abdomen/pelvis CT scan shows some hepatic steatosis, with alcohol abuse history likely alcohol associated liver disease -discussed importance of alcohol cessation (3) Essential (primary) hypertension: Code(s): I10 - Essential (primary) hypertension Status: Acute Assessment and Plan: Chronic, well controlled on home medications. - HCTZ 25 mg daily - Losartan 100 mg daily - Monitor (4) Alcohol abuse: Code(s): F10.10 - Alcohol abuse, uncomplicated Status: Acute Assessment and Plan: Drinks 3-5 cranberry vodkas per day for the past 3 or so years. She has never experienced withdraw before. - [facility] protocol - Care coordination consulted, resources given - Vit B12, folate, thiamine, and multivitamin ordered (5) Pancytopenia: Code(s): D61.818 - Other pancytopenia Status: Acute Assessment and Plan: Patient has low blood levels likely due to her ongoing alcoholism. Discussed with patient that these will likely improve with alcohol cessation and to follow up with a radio talk show host outpatient. - Iron panel: iron 43, TIBC 173, % saturation 24 - B12 343 - Folate 5.6 - Patient on B12 and folate supplements for alcohol abuse - Per GI will require scopes as outpatient (6) TANIA (acute kidney injury): Code(s): N17.9 - Acute kidney failure, unspecified Status: Acute Assessment and Plan: BUN/Cr 29/2.9 on admission. Unknown baseline. - BUN/Cr 4/1 on am labs - Avoid nephrotoxic medications - Renally dose medications - Monitor I/O and vital signs - Monitor kidney function on am labs Plan # chronic conditions -insomnia: Trazodone -history of SVT status post ablation, no longer an issue, not on any medications for SVT -history of kidney stones Diet: clear liquid DVT prophylaxis: Lovenox Code status: Full code Disposition: Home in 2-3 days Time Spent With Patient Time with patient: 25 - 35 minutes Subjective Date/time seen: 01/20/24 13:38 Interval history: 48-year-old female with past medical history of essential hypertension, SVT status post ablation, history of renal stones, alcohol abuse who presents to ED with complaints of abdominal pain. Patient is pleasant lying comfortably in bed. She continues to endorse pain to the epigastric region that wraps around the right side to her back. She was transitioned to p.o. pain meds overnight. However she continues to use [place] is approximately every 4 hours for pain. She did have increase in her lipase today. Her renal ultrasound showed normal gallbladder without stones. She denies chest pain shortness a breath nausea vomiting and changes in bowel/bladder. Review of Systems Review of Systems: All systems reviewed & are
[2024-01-20 14:00] VITALS: BP 150/93; PULSE 70; RESP 20; TEMP 37.6; O2SAT 100
[2024-01-20] MEDS: ONDANSETRON INJ 4 MG/2 ML VIAL IV PUSH (14:00)
[2024-01-20] MEDS: ACETAMINOPHEN 325 MG TABLET 650 MG PO ×2 (14:00→20:39)
[2024-01-20 21:27] VITALS: BP 157/95; PULSE 83; RESP 16; TEMP 37; O2SAT 100
[2024-01-20] MEDS: traZODone HCL 50 MG TABLET PO (22:18)
[2024-01-21] MEDS: LACTATED RINGERS 1,000 ML 100 ML IV CONT (02:13)
[2024-01-21] MEDS: ACETAMINOPHEN 325 MG TABLET 650 MG PO ×2 (02:16→08:00)
[2024-01-21] MEDS: HYDROcodone/acetaminophen (*CRX) 5-325 MG TABLET 1 TAB PO ×2 (05:49→10:43)
[2024-01-21 06:00] VITALS: BP 132/83; PULSE 89; RESP 18; TEMP 36.6; O2SAT 98
[2024-01-21 06:15] LABS: Basophils Percent Auto 0.6 % (0.2-1.2); Eosinophils Absolute Auto 0.1 K/mm3 (0-0.3); Eosinophils Percent Auto 2.7 % (0-4.4); Hematocrit 24.1 % (37.0-47.0); Hemoglobin 8.5 g/dL (12.0-15.0); Immature Granulocyte Absolute 0.03 K/mm3 (0.00-0.031); Immature Granulocyte Percent A 0.9 % (0-0.5); Immature Platelet Fraction Pct 5.1 % (0.9-11.2); Lymphocytes Absolute Auto 0.69 K/mm3 (0.9-3.2); Lymphocytes Percent Auto 20.8 % (18.3-44.2); Mean Corpuscular HGB Conc 35.3 g/dl (32-36); Mean Corpuscular Volume 110.6 fl (80-100); Mean Platelet Volume 10.4 fl (7.4-10.4); Monocytes Absolute Auto 0.4 K/mm3 (0.1-0.6); Neutrophils Absolute Auto 2.1 K/mm3 (1.3-6.7); Platelet Count Result 123 k/mm3 (150-375); Red Blood Count 2.18 M/mm3 (4.2-5.4); Red Cell Distribution Width 14.4 % (11.5-14.5); White Blood Count 3.3 K/mm3 (4.5-10.0)
[2024-01-21 06:28] LABS: Prothrombin Time 13.4 Seconds (11.1-14.7)
[2024-01-21 06:35] LABS: Alanine Aminotransferase 21 U/L (6-35); Albumin Level 2.8 g/dL (3.5-5.1); Alkaline Phosphatase 50 U/L (38-126); Anion Gap 10 mmol/L (4-12); Aspartate Amino Transferase 41 U/L (14-36); Bilirubin,Total 0.4 mg/dL (0.2-1.3); Blood Urea Nitrogen 5 mg/dL (7-17); Calcium 8.6 mg/dL (8.4-10.2); Carbon Dioxide 28 mmol/L (22-30); Chloride 98 mmol/L (98-107); Estimated CRCL calculation 62 ml/min; Estimated Glomerular Filt Rate > 60; Glucose 89 mg/dL (65-110); Potassium 3.1 mmol/L (3.4-5.0); Sodium 136 mmol/L (137-145)
[2024-01-21 06:43] LABS: Anisocytosis 1+; Hypochromasia 1+; Macrocytosis 1+ (NORMAL); Platelet Estimate Decreased (Adequate); Schistocytes None Seen
[2024-01-21 06:47] LABS: Lipase 2785 U/L (23-300)
[2024-01-21] MEDS: POTASSIUM CHLORIDE 20 MEQ ER TABLET 40 MEQ PO (08:00)
[2024-01-21] MEDS: CYANOCOBALAMIN 500 MCG TABLET PO (08:00)
[2024-01-21] MEDS: levoFLOXacin 750 MG TABLET PO (08:00)
[2024-01-21] MEDS: FOLIC ACID 0.4 MG TABLET PO (08:00)
[2024-01-21] MEDS: MULTIVITAMINS THERAPEUTIC TAB (*BKC) 1 TABLET PO (08:00)
[2024-01-21] MEDS: hydroCHLOROthiazide 25 MG TABLET PO (08:00)
[2024-01-21] MEDS: LOSARTAN POTASSIUM 100 MG TABLET PO (08:00)
[2024-01-21] MEDS: THIAMINE HCL 100 MG TABLET PO (08:00)
--- NOTE | 2024-01-21 09:34 | WPDGIPROGNO ---
Progress Note: A&P Assessment and Plan (1) Acute alcoholic pancreatitis: Qualifiers: Acute pancreatitis complication: no infection or necrosis Qualified Code(s): K85.20 - Alcohol induced acute pancreatitis without necrosis or infection Code(s): K85.20 - Alcohol induced acute pancreatitis without necrosis or infection Status: Acute Assessment and Plan: here with alcoholic pancreatitis tolerating diet pain better and not longer requiring iv pain meds just oral as needed she can go home by gi standpoint and then follow-up in office (2) Fatty liver due to alcoholism: Code(s): K70.0 - Alcoholic fatty liver Status: Acute Assessment and Plan: etoh cessation (3) TANIA (acute kidney injury): Code(s): N17.9 - Acute kidney failure, unspecified Status: Acute Assessment and Plan: resolved (4) Pancytopenia: Code(s): D61.818 - Other pancytopenia Status: Acute Assessment and Plan: probably from alcohol abuse/BM toxicity and liver disease stable we can do scopes as outpatient (5) Alcohol abuse: Code(s): F10.10 - Alcohol abuse, uncomplicated Status: Acute Assessment and Plan: she really needs to quit altogether thiamine, mvi (6) Nausea and vomiting in adult: Code(s): R11.2 - Nausea with vomiting, unspecified Status: Acute Assessment and Plan: resolved (7) Elevated transaminase level: Code(s): R74.01 - Elevation of levels of liver transaminase levels Status: Acute Subjective Date/time seen: 01/21/24 09:34 Interval history: eating and more comfortable Review of Systems Review of Systems: All systems reviewed & are unremarkable except as noted in HPI and below Exam Const: General: comfortable HENMT: Face/Nose/Sinus: Normal nares present Eyes: General: appearance normal, both eyes and all related structures Neck: Neck: supple Resp: Auscultation: clear to auscultation bilaterally Cardio: Rate: regular rate Rhythm: regular rhythm GI: Inspection: non-distended GI Palp: Yes Soft to palpation and No Tenderness to palpation present (GI) Auscultation: normal bowel sounds Skin: General skin exam: normal color Neuro: Speech: normal speech Motor exam (neuro): 5/5 motor strength present throughout Extrem: General: normal to inspection Psych: Affect: normal affect Objective Data Vital Signs Vital Signs: Vital Signs - 24 hr 01/20/24 14:00 01/20/24 21:27 01/21/24 06:00 Temperature 99.7 F H 98.6 F 97.9 F Pulse Rate 70 83 89 Respiratory Rate 20 16 18 Blood Pressure 150/93 H 157/95 H 132/83 Pulse Oximetry 100 100 98 Oxygen Delivery 01/21/24 08:00 Temperature Pulse Rate Respiratory Rate Blood Pressure Pulse Oximetry Oxygen Delivery Room Air Intake/Output Intake/Output: Intake & Output 01/18/24 01/19/24 01/20/24 01/21/24 23:59 23:59 23:59 23:59 Intake Total 2220 3610 3330 200 Balance 2220 3610 3330 200 Meds/Results Medications: Active Medications Generic Name Dose Route Start Last Admin Trade Name Freq PRN Reason Stop Dose Admin Acetaminophen 650 mg 01/20/24 14:00 01/21/24 08:00 Acetaminophen 325 Mg Tablet PO 650 mg Q6H CICI Administration Hydrocodone Bitart/Acetaminophen 1 tab 01/19/24 20:44 01/21/24 05:49 Hydrocodone/Acetaminophen (*Crx) 5-325 Mg Tablet PO 1 tab Q4H PRN Administration Pain Rated 4-6 Cyanocobalamin 500 mcg 01/18/24 09:00 01/21/24 08:00 Cyanocobalamin 500 Mcg Tablet PO 500 mcg QAM CICI Administration Folic Acid 0.4 mg 01/18/24 09:00 01/21/24 08:00 Folic Acid 0.4 Mg Tablet PO 0.4 mg DAILY CICI Administration Hydrochlorothiazide 25 mg 01/17/24 09:00 01/21/24 08:00 Hydrochlorothiazide 25 Mg Tablet PO 25 mg DAILY CICI Administration Hydromorphone HCl 0.5 mg 01/16/24 23:39 01/19/24 20:34 Hydromorphone Hcl Inj (*Crx) 1 Mg/Ml Syr IV PUSH 0.5 mg Q4H PRN
--- NOTE | 2024-01-21 13:04 | PM.DS ---
DS: Admitting Diagnosis Discharge Date 01/21/2024 Admitting Diagnosis acute alcoholic pancreatitis fatty liver due to alcoholism essential hypertension alcohol abuse pancytopenia TANIA DS: Discharge Diagnosis Discharge Diagnosis (1) Acute alcoholic pancreatitis: Qualifiers: Acute pancreatitis complication: no infection or necrosis Qualified Code(s): K85.20 - Alcohol induced acute pancreatitis without necrosis or infection Code(s): K85.20 - Alcohol induced acute pancreatitis without necrosis or infection Status: Acute (2) Fatty liver due to alcoholism: Code(s): K70.0 - Alcoholic fatty liver Status: Acute (3) Essential (primary) hypertension: Code(s): I10 - Essential (primary) hypertension Status: Acute (4) Alcohol abuse: Code(s): F10.10 - Alcohol abuse, uncomplicated Status: Acute (5) Pancytopenia: Code(s): D61.818 - Other pancytopenia Status: Acute (6) TANIA (acute kidney injury): Code(s): N17.9 - Acute kidney failure, unspecified Status: Acute DS: Summary Hospital Course Reason for hospitalization: acute alcoholic pancreatitis fatty liver due to alcoholism essential hypertension alcohol abuse pancytopenia TANIA Hospital Course: 48-year-old female with past medical history of essential hypertension, SVT status post ablation, history of renal stones, alcohol abuse who presents to ED with complaints of abdominal pain, nausea/vomiting and diarrhea. [place] [id number]. Urine concerning for infection and she was started on Rocephin. CT abdomen/pelvis showed hepatic steatosis and acute interstitial pancreatitis with normal gallbladder. Patient started on IV fluids, analgesics and made NPO for bowel rest. Given patients alcohol history likely alcoholic pancreatitis. Patient was started on CIWA precautions, B12, folate, thiamine, multivitamin and given resources by care coordination. GI was consulted and had no interventions. Patient was originally not tolerating her diet and requiring IV pain medications. Her lipase had a slight increase and a RUQ US was obtained. The US showed that the gallbladder is normal in size without gallstones or gallbladder wall thickening. Lipase continues to downtrend. Patient was transitioned to PO pain medications and tolerated a low fat diet. Urine culture was positive for Ecoli with ESBL, patient transitioned to PO Levaquin. Patient was pancytopenic throughout admission. She was noted to have low iron levels and B12. She was started on supplementation. GI plans for outpatient scope. Discussed with patient that this is likely a result of her alcohol intake and should improve with cessation. She is to follow up with her PCP or hematology in the outpatient setting. Prior to discharge patient denies chest pain, shortness of breath, nausea/vomiting, and is tolerating her diet. Patient discharged home in stable condition. She received resources for alcohol cessation. She is to complete her course of Levaquin as prescribed. She is to follow up with her PCP in 1 week and GI as scheduled. Status at Discharge Functional status at discharge: independent ambulation Time Spent with Patient Time attestation: Total time spent providing and/or coordinating discharge services: Time spent: Greater than 30 minutes Exam Narrative: AF HR 89 RR 18 SPO2 98 BP 132/83 General: female in no acute respiratory distress who is nontoxic appearing, lying semi recumbent in bed. Chest: Lungs are clear to auscultation bilaterally. No wheezes or crackles. CV: Heart was regular rate and rhythm. S1-S2. No murmurs, gallops, or rubs. Abd: Abdomen was soft. Improving epigastric tenderness without gaurding. Nondistended. Positive bowel sounds. No organomegaly or masses. Neuro: Patient is alert and oriented x4. Cranial nerves 2-12 are intact. Speech is clear. Psych: Normal mood and affect. Patient is pleasant and cooperat
== END 2024-01-21 13:45 | disposition home or self-care (01) | DRG 282 ==
LOC: ANHED 21:10 → ANH3MEDSUR 01-17 00:16
PROVIDERS: Nurse Practitioner Family; Admitting Provider Student in an Organized Health Care Education/Training Program; Emergency Provider Physician Assistant; PCP Family Medicine; Visit Provider Student in an Organized Health Care Education/Training Program
DX: K85.20 Alcohol induced acute pancreatitis without necrosis or infection (principal); K70.0 Alcoholic fatty liver; F10.20 Alcohol dependence, uncomplicated; N39.0 Urinary tract infection, site not specified; B96.20 Unspecified Escherichia coli [E. coli] as the cause of diseases classified elsewhere; K76.0 Fatty (change of) liver, not elsewhere classified; D61.818 Other pancytopenia; N17.9 Acute kidney failure, unspecified; I10 Essential (primary) hypertension; G47.00 Insomnia, unspecified; R74.01 Elevation of levels of liver transaminase levels; Z16.12 Extended spectrum beta lactamase (ESBL) resistance; Z87.442 Personal history of urinary calculi; Z87.891 Personal history of nicotine dependence
CPT/HCPCS: 36415; 74176; 76705; 80053; 81001; 81025; 82607; 82746; 82803; 83540; 83550; 83605; 83690; 84478; 85025; 85055; 85610; 87077; 87086; 87088; 87186; 93005; 96361; 96365; 96366; 96372; 96374; 96375; 96376; 99285; A9270; G0378; J0696; J1170; J1650; J2270; J2405; J3411; J3480; J7030; J7040; J7120